=== PATIENT | female | born 1990 | race Caucasian/White ===

== ENCOUNTER 2017-03-22 11:08 | Inpatient (IN) | payer BC ==
[~2017-03-22] VITALS: Ht 154.9 cm; Wt 63.5 kg
--- NOTE | ~2017-03-22 | FD ---
ADMIT: 03/22/2017 RM/LOC: 228 [facility] MR#: [id number] [address] [address] [address] [address] [place] [id number] Final Diagnosis SEX: F AGE: 27 : 1990 ADMISSION DATE: 03/22/2017 DISCHARGE DATE: 03/24/2017 FINAL DIAGNOSIS: 1. intrauterine at 36 weeks 4 days. 2. Oligohydramnios. PROCEDURE: Spontaneous vaginal delivery. Yesica Wade MD/ christelle JOB #: [id number] CC: Renetta Gordon MD, Attending Physician Renetta Gordon MD, Family Physician
--- NOTE | ~2017-03-22 | HP ---
ADMIT: 03/22/2017 RM/LOC: 228 [facility] MR#: [id number] [address] [address] [address] [address] [address] [place] [id number] History and Physical SEX: F AGE: 27 : 1990 DATE OF SERVICE: REASON FOR ADMISSION: Oligohydramnios. HISTORY OF PRESENT ILLNESS: The patient is a 27-year-old, 4, para 3-0- 0-3, who presented to Labor and Delivery at 36-4/7th weeks' gestation by last menstrual period with estimated date of confinement 04/15/2017. The patient's had been uncomplicated and care had been ordered with Dr. Fields. At the time of her last visit of 03/21, she was noted to have a fundal height that was size less than dates. Ultrasound was performed, which showed adequate growth, but the MIKAELA was noted to be approximately 2.9. It was unclear if there was a vertical pocket less than 2 cm, and so she was followed up at the [facility] on 03/22/2017. On ultrasound at the [facility], she was noted to have an MIKAELA of 2.6 and there was no vertical pocket greater than 2 cm. For this reason, the patient was diagnosed with oligohydramnios, and due to gestational age of greater than 36 weeks, decision was made to proceed with induction of labor. LABORATORY DATA: Blood type A positive, antibody screen negative, RPR nonreactive, rubella nonimmune, group B strep unknown. HIV negative. Gonorrhea and chlamydia unknown. Hep B surface antigen negative. PAST MEDICAL HISTORY: History of juvenile rheumatoid arthritis, which has resolved. PAST SURGICAL HISTORY: Screw in the right wrist and appendectomy. CURRENT MEDICATIONS: None. ALLERGIES: NO KNOWN MEDICAL ALLERGIES. FAMILY HISTORY: Brother with asthma and mother with hypertension. SOCIAL HISTORY: The patient is . She denies any alcohol, tobacco, or drug use. PHYSICAL EXAMINATION: VITAL SIGNS: On admission, blood pressure 138/77, pulse 76, temperature 98.1, respirations 18. GENERAL: The patient is alert and oriented, no acute distress. HEART: Regular rate and rhythm without murmurs, gallops, or rubs. LUNGS: Clear to auscultation bilaterally. ABDOMEN: Soft, nontender, gravid. EXTREMITIES: No edema. No calf tenderness. heart tones are in the 140s with moderate variability and accelerations present. Contractions are irregular. Cervix 1 cm dilated, 70% effaced, and - ADMIT: 03/22/2017 RM/LOC: 228 [facility] MR#: [id number] [address] [place] [id number] [place] [address] History and Physical SEX: F AGE: 27 : 1990 2 station. ASSESSMENT AND PLAN: 1. A 27-year-old 4, para 3-0-0-3, at 36-4/7th weeks' gestation. 2. Oligohydramnios. Plan to induce due to no vertical pocket greater than 2 cm. The patient was given one dose of betamethasone due to delivery anticipate less 37 weeks' gestation. 3. Rubella nonimmune. We will give MMR vaccine . 4. Group B strep unknown. We will begin penicillin G for group B Strep prophylaxis. Renetta Gordon MD/ farheen JOB #: [id number] CC: Renetta Gordon, Attending Physician Renetta Gordon, Family Physician Umang Fields MD
[2017-03-25] MEDS ORDERED: TYLENOL EXTRA500 M1 PO (11:58)
[2017-03-25] MEDS ORDERED: FEOSOL-DPS325 MG PO (11:58)
[2017-03-25] MEDS ORDERED: COLACE-DPS100 MG PO (11:58)
[2017-03-25] MEDS ORDERED: PRENATAL VIT1 TAB PO (11:58)
[2017-03-25] MEDS ORDERED: MOTRIN-DPS800 MG PO (11:59)
[2017-03-25] MEDS ORDERED: NIPPLECREAM TP (11:59)
[2017-03-25] MEDS ORDERED: LAN-O-SOOTHE7 GM TP (12:00)
[2017-03-25] MEDS ORDERED: DERMOPLAST SPRA56 GM PR (12:00)
[2017-03-25] MEDS ORDERED: TUCKS1 EACH TP (12:00)
--- NOTE | 2017-04-19 07:15 | OR ---
ADMIT: 03/22/2017 RM/LOC: 228 [facility] MR#: [id number] [address] [address] [address] [address] [address] [place] [id number] Operative/Delivery Room Report SEX: F AGE: 27 : 1990 SURGERY DATE: 03/23/2017 SURGEON: Renetta Gordon MD NAME OF PROCEDURE: Spontaneous vaginal delivery. PREOPERATIVE DIAGNOSES: 1. Intrauterine at 36-4/7th weeks' gestation. 2. Oligohydramnios. POSTOPERATIVE DIAGNOSES: 1. Intrauterine at 36-4/7th weeks' gestation. 2. Oligohydramnios. FINDINGS: Liveborn male infant, scores 8 at 1 minute, 9 at 5 minutes. Weight 6 pounds 8 ounces. ESTIMATED BLOOD LOSS: 100 mL. ANESTHESIA: Epidural. COMPLICATIONS: None. INDICATIONS FOR PROCEDURE: The patient is a 27-year-old, 4, para 3-0- 0-3, who presented to [facility] for routine care on 03/21/2017. She was noted to have a decrease fundal height and so ultrasound was obtained. This showed decreased amniotic fluid index. The patient then followed up at the [facility] on 03/22/2017. Oligohydramnios was confirmed with deepest vertical pocket less than 2 cm and overall MIKAELA of 2.6. Due to this and gestational age, decision was made to proceed with induction of labor. The patient received 1 dose of misoprostol. Group B strep status was unknown, so the patient was placed on penicillin G for group B strep prophylaxis and the patient was given 1 dose of steroids due to delivery prior to 37 weeks. The patient received misoprostol and then had Pitocin for induction of labor. The patient progressed through labor to completely dilated and pushed, bringing the 's vertex to the perineum. PROCEDURE IN DETAIL: The patient was noted to be complete and pushing with the 's vertex at the perineum. The patient pushed and the 's vertex delivered in the SACHIN position over midline. She continued to push, the anterior shoulder delivered, the posterior shoulder followed, and the remainder of the delivered without difficulty as well. The was dried and handed off to the mother's abdomen where nursing personnel were in attendance. A 20 units of Pitocin were placed in the IV bag to firm the ADMIT: 03/22/2017 RM/LOC: 228 [facility] MR#: [id number] [address] [address] [place] [address] Operative/Delivery Room Report SEX: F AGE: 27 : 1990 uterus. The cord was then clamped and cut. The placenta delivered intact spontaneously. The cervix was examined and was noted to be free of lacerations. The vaginal vault and perineum were examined and were also noted to be free of lacerations. The patient tolerated the procedure well. All sponge and needle counts were correct. The patient and her recovered in the room in stable condition. Renetta Gordon MD/ farheen JOB #: [id number] CC: Renetta Gordon, Attending Physician Renetta Gordon, Family Physician Umang Fields MD
--- NOTE | 2017-04-19 07:21 | OR ---
ADMIT: 03/22/2017 RM/LOC: 228 [facility] MR#: [id number] [address] [address] [address] [address] [place] [address] Operative/Delivery Room Report SEX: F AGE: 27 : 1990 SURGERY DATE: 03/23/2017 SURGEON: Renetta Gordon MD NAME OF PROCEDURE: Removal of epidural catheter. INDICATIONS FOR PROCEDURE: The patient is a 27-year-old, 4, para 3-0- 0-3, who presented to Labor and Delivery at 36-4/7th weeks' gestation for induction of labor. The patient did have an epidural placed for pain control during labor. PROCEDURE IN DETAIL: The patient delivered via spontaneous vaginal delivery. After delivery, the patient was placed in a sitting position and the patient's epidural catheter was removed without difficulty and tip was noted to be intact. The patient tolerated the procedure well. Renetta Gordon MD/ farheen JOB #: [id number] CC: Renetta Gordon, Attending Physician Renetta Gordon, Family Physician
== END 2017-03-24 17:18 | disposition home or self-care (01) | DRG 775 ==
LOC: BC 11:08 → 2LDRP 11:08
PROVIDERS: ADMIT Obstetrics & Gynecology
PROC: 10E0XZZ Delivery of Products of Conception, External Approach (ICD-10-PCS; principal; 2017-03-23)
PROC: 3E033VJ Introduction of Other Hormone into Peripheral Vein, Percutaneous Approach (ICD-10-PCS; principal; 2017-03-23)
PROC: 3E0P7GC Introduction of Other Therapeutic Substance into Female Reproductive, Via Natural or Artificial Opening (ICD-10-PCS; principal; 2017-03-23)
DX: O41.03X0 Oligohydramnios, third trimester, not applicable or unspecified (principal); Z37.0 Single live birth; Z3A.36 36 weeks gestation of pregnancy